=== PATIENT | male | born 1950 | race Caucasian/White ===

== ENCOUNTER 2017-05-04 09:50 | Observation (INO) | payer MEDICARE ==
[2017-05-04 12:40] LABS: PTT 48.2 SEC (22.9-36.1)
[2017-05-04 12:45] LABS: #Eosinphils 0.6 thou/uL (0.0-0.7); #Lymphocytes 1.6 thou/uL (1.20-3.40); #Monocytes 0.5 thou/uL (0.11-0.59); #Neutrophils 6.5 thou/uL (1.40-6.50); %Basophils 0.3 % (0.0-1.0); %Eosinophils 6.9 % (0.0-10.0); %Lymphocytes 17.4 % (21.0-51.0); %Monocytes 5.1 % (0.0-10.0); %Neutrophils 70.4 % (42.0-75.0); Hemoglobin 16.4 g/dL (14.0-18.0); Mean Corpuscular HGB CONC 32.7 g/dL (32.0-36.0); Mean Corpuscular Hemoglobin 31.6 pg (27.0-31.0); Mean Corpuscular Volume 96.6 fl (80.0-94.0); Mean Platelet Volume 8.9 fL (7.4-10.4); Platelet Count 245 thou/uL (130-400); RBC Distribution Width 11.8 % (11.5-14.5); Red Blood Cell (RBC) Count 5.21 mill/uL (4.70-6.10); White Blood Cell (WBC) Count 9.3 thou/uL (4.8-10.8)
[2017-05-04] MEDS ORDERED: Propofol 1,000 MG/100 ML VIAL IV ONE ×2 (12:47→13:47)
[2017-05-04] MEDS ORDERED: Midazolam HCl 2 mg/2 ml Vial ONE (12:47)
[2017-05-04] MEDS ORDERED: Glycopyrrolate 0.2 MG/ML 5 ML SYRINGE ONE (12:47)
[2017-05-04] MEDS ORDERED: Fentanyl 100 MCG/2 ML VIAL ONE (12:47)
[2017-05-04] MEDS ORDERED: PHENYLEPHRINE-NS 100 MCG/ML 10 ML SYRINGE ONE ×3 (12:47→14:45)
[2017-05-04 12:48] LABS: ALT (SGPT) 34 U/L (8-55); AST (SGOT) 19 U/L (5-34); Albumin 4.7 g/dL (3.4-4.8); Alkaline Phosphatase 70 U/L (40-150); Anion Gap 13 mmol/L (10-20); BUN (Urea Nitrogen) 19 mg/dL (8.4-25.7); Bilirubin, Total 0.9 mg/dL (0.2-1.2); Calc. Creatinine Clearance 98 mL/min (70-130); Calcium 9.8 mg/dL (7.8-10.44); Carbon Dioxide 26 mmol/L (23-31); Chloride 107 mmol/L (98-107); Estimated GFR-MDRD 82; Globulin 2.6 g/dL (2.4-3.5); Glucose 139 mg/dL (80-115); Potassium 4.2 mmol/L (3.5-5.1); Protein, Total 7.3 g/dL (5.8-8.1); Sodium 142 mmol/L (136-145)
[2017-05-04] MEDS ORDERED: Protamine Sulfate 50 MG/5 ML VIAL ONE ×2 (13:25→14:59)
[2017-05-04] MEDS ORDERED: Heparin 30,000 units/30 ml VIAL ONE (13:25)
[2017-05-04] MEDS ORDERED: PROPOFOL 200 MG/20 ML VIAL ONE (13:25)
[2017-05-04] MEDS ORDERED: Heparin 10,000 UNITS/1 ML VIAL ONE (13:27)
[2017-05-04] MEDS ORDERED: Heparin 25,000 units/D5W 500 ML ONE (14:00)
[2017-05-04] MEDS ORDERED: Lidocaine 2% Jelly 5 ML TUBE ONE (14:11)
--- NOTE | 2017-05-04 14:21 | EKG ---
Test Reason : PREOP Blood Pressure : / mmHG Vent. Rate : 085 BPM Atrial Rate : 085 BPM P-R Int : 146 ms QRS Dur : 086 ms QT Int : 372 ms P-R-T Axes : 047 -09 044 degrees QTc Int : 442 ms Normal sinus rhythm Normal ECG No previous ECGs available Confirmed by DR. Amadou ALLRED (3) on 05/04/2017 2:20:32 PM Referred By: [facility] Confirmed By:DR. Amadou ALLRED
[2017-05-04] MEDS ORDERED: Isoproterenol 0.2 MG/1 ML AMP ONE (14:48)
[2017-05-04] MEDS ORDERED: Morphine Sulfate 2 MG/ML SYRINGE SLOW IVP PRN (15:35)
[2017-05-04] MEDS ORDERED: Promethazine HCl 25 MG/ML VIAL SLOW IVP PRN ×2 (15:35→17:47)
[2017-05-04] MEDS ORDERED: Ondansetron HCl/PF 4 MG/2 ML Vial IVP PRN ×3 (15:35→17:47)
[2017-05-04] MEDS ORDERED: Bisacodyl 5 MG TAB PO PRN (16:51)
[2017-05-04] MEDS ORDERED: diphenhydrAMINE 25 MG CAP PO PRN (16:51)
[2017-05-04] MEDS ORDERED: traMADol HCl 50 MG TAB PO PRN (16:51)
[2017-05-04] MEDS ORDERED: Mag-Al 1200 mg/1200 mg/30 ML UDCUP PO PRN (16:51)
[2017-05-04] MEDS ORDERED: Acetaminophen 325 MG TAB PO PRN (16:51)
[2017-05-04] MEDS ORDERED: Bisacodyl 10 MG SUPP PR PRN (16:51)
[2017-05-04] MEDS ORDERED: Nitroglycerin 0.4 MG TAB (25 Tab Bottle) SL PRN (16:51)
[2017-05-04] MEDS ORDERED: Temazepam 15 MG CAP PO PRN (16:51)
[2017-05-04 16:52] VITALS: BMI 31.4
[2017-05-04] MEDS ORDERED: Fentanyl 100 MCG/2 ML VIAL SLOW IVP PRN (17:47)
[2017-05-04] MEDS ORDERED: HYDROcodone/Acetaminophen 5/325 mg Tablet PO PRN ×2 (17:47)
[2017-05-04] MEDS ORDERED: Tamsulosin HCl 0.4 MG CAP PO SCH (21:00)
[2017-05-04] MEDS ORDERED: Atorvastatin Calcium 40 MG TAB PO SCH (21:00)
--- NOTE | 2017-05-05 01:35 | CCL ---
DATE OF PROCEDURE: 05/04/2017 ELECTROPHYSIOLOGY STUDY AND RADIOFREQUENCY ABLATION REPORT REASON FOR PROCEDURE: Mr. Morton is a 66-year-old man with a history of recurrent sustained tachy palpitations with EKG documentation of SVT with adenosin termination. REFERRING PHYSICIAN: Gigi Zafar M.D. DESCRIPTION OF PROCEDURE: The patient received deep sedation by Anesthesia specialist. After adequate level of sedation achieved, both femoral venous areas were anesthetized using subcutaneous lidocaine. Under ultrasound guidance , the left femoral vein was accessed and two 6-[place] and 8-[place] sheaths were introduced through which a decapolar CS, an octapolar RV/-----, and a quadripolar catheter was advanced to the appropriate positions. Mapping, pacing , and recording was performed at each location. Basic electrophysiology study was performed with the following findings: Baseline cycle length is 690, CA 121 , QRS 80 milliseconds, QT 345 milliseconds, AH 74, HV 44 milliseconds. AV Wenckebach cycle length was 370 milliseconds. VA Wenckebach cycle length was 280 milliseconds. The accenting retrograde ventricular activation was seen with earliest atrial activation during V pacing was at the lateral CS. AV ERP was 600/240, no AV jump was observed with atrial and ventricular burst pacing. We are able to induce a narrow complex with a cycle length of 330 milliseconds. The atrial activation was again eccentric at the CS 12 position. Ventricular overdrive pacing demonstrated VA-VA return suggestive of no atrial tachycardia but AV reciprocating tachycardia. Following that, the decision was made to perform transseptal puncture with ice catheter monitoring. The right femoral veins were accessed x2 and 11-[place]izen [place] and 9-[place] sheaths were introduced for this purpose. The ice catheter was positioned in the right atrium and it was used to monitor the transseptal and for effusion after that. Following that, the transseptal procedure was performed using SLO sheath and [place] needle without complications. Following that, a Thermocool SFST catheter was advanced to the left atrium and left atrium 3D map was obtained. Also, activation map of the tachycardia was mapped. The earliest activation was mapped to the anterolateral area of the mitral valve annulus, and in this area a single burn promptly terminated the VA conduction. Following that, no over indelibility of tachycardia was observed. This persisted after isuprel challenge. Following that repeat EP study was performed revealing no inducible tachyarrhythmia. No AV jump was observed and VA block was seen up to 550 milliseconds. HV interval did not change, which was 44 milliseconds. CONCLUSION: 1. 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 2. Successful ablation of the pathway performed with no re-inducibility of tachycardia seen. PLAN: Routine postop recovery and to stop AV bebo blocking agents. POS: [facility] [address]
[2017-05-05] MEDS ORDERED: Levothyroxine 150 MCG TAB PO SCH (06:00)
[2017-05-05 08:34] VITALS: TEMP 98.4
[2017-05-05 08:49] VITALS: BP 116/69
[2017-05-05] MEDS ORDERED: Aspirin 325 mg Enteric Coated Tablet PO SCH (09:00)
--- NOTE | 2017-05-05 14:17 | DIS ---
DATE OF ADMISSION: 05/04/2017 DATE OF DISCHARGE: 05/05/2017 On discharge, Mr. Morton, after his overnight stay post-ablation for a left lateral accessory p athway, which was a cause of his AV re-entry tachycardia. HOSPITAL COURSE: The patient underwent elective EP study and ablation procedure as above. He tolera komal the procedure well, no complications noted. Due to left atrial access and anticoagulation during the case, he was kept overnight and the subsequent day, he remained stable. Postop telemetry strips reveal no arrhythmias. OBJECTIVE DATA: VITAL SIGNS: Blood pressure 114/61, heart rate 72, respirations 20, temperature 98 degrees Fahrenhei t. GENERAL: This is alert and oriented man in no apparent distress. NECK: Supple. Jugular veins not distended. CHEST: Coarse without crackles. CARDIOVASCULAR: Heart sounds are regular rate and rhythm. No murmur or gallop. ABDOMEN: Benign, bowel sounds positive. EXTREMITIES: Lower extremity without edema, clubbing, or cyanosis. DATABASE: EKG reviewed, sinus rhythm, rate of 75 beats per minute, normal EKG seen. PLAN: Mr. Morton is stable one day after his ablation procedure for discharge. We will discharge him on his home medications without change except for the metoprolol, will be reduc ed to 25 mg daily today and could be further tapered off as clinically appropriate.
--- NOTE | 2017-05-05 17:00 | EKG ---
Test Reason : Blood Pressure : / mmHG Vent. Rate : 086 BPM Atrial Rate : 086 BPM P-R Int : 158 ms QRS Dur : 084 ms QT Int : 370 ms P-R-T Axes : 073 031 066 degrees QTc Int : 442 ms Normal sinus rhythm Low voltage QRS Borderline ECG When compared with ECG of 04-MAY-2017 10:20, No significant change was found Confirmed by DR. Amadou ALLRED (3) on 05/05/2017 4:59:47 PM Referred By: [facility] Confirmed By:DR. Amadou ALLRDE
--- NOTE | 2017-05-05 17:03 | EKG ---
Test Reason : Blood Pressure : / mmHG Vent. Rate : 075 BPM Atrial Rate : 075 BPM P-R Int : 150 ms QRS Dur : 088 ms QT Int : 408 ms P-R-T Axes : 056 008 042 degrees QTc Int : 455 ms Normal sinus rhythm Normal ECG When compared with ECG of 04-MAY-2017 15:50, (Unconfirmed) No significant change was found Confirmed by DR. Amadou ALLRED (3) on 05/05/2017 5:03:07 PM Referred By: [facility] Confirmed By:DR. Amadou ALLRED
== END 2017-05-05 10:50 | disposition home or self-care (01) ==
LOC: CCL 09:50 → 2SW 15:37
PROVIDERS: ADMIT Internal Medicine Cardiovascular Disease; ATTEND Internal Medicine Cardiovascular Disease
DX: I47.1 Supraventricular tachycardia (principal); I25.10 Atherosclerotic heart disease of native coronary artery without angina pectoris; I48.91 Unspecified atrial fibrillation; I25.2 Old myocardial infarction; I34.0 Nonrheumatic mitral (valve) insufficiency; E11.9 Type 2 diabetes mellitus without complications; E78.5 Hyperlipidemia, unspecified; Z98.890 Other specified postprocedural states; Z79.82 Long term (current) use of aspirin; Z79.899 Other long term (current) drug therapy
CPT/HCPCS: 76942; 80053; 85025; 85347 ×2; 85610; 85730; 93005 ×3; 93462; 93613; 93623; 93653; C1730 ×3; C1759; C1769; G0378; 93010; J1644; J2250; J2704; J2720; J3010

== ENCOUNTER 2017-05-07 16:21 | Emergency (ER) | payer MEDICARE ==
[2017-05-07 16:54] LABS: #Basophils 0.1 thou/uL (0.0-0.2); #Eosinphils 0.3 thou/uL (0.0-0.7); #Lymphocytes 0.3 thou/uL (1.20-3.40); #Monocytes 0.4 thou/uL (0.11-0.59); #Neutrophils 7.7 thou/uL (1.40-6.50); %Basophils 1.5 % (0.0-1.0); %Eosinophils 3.4 % (0.0-10.0); %Lymphocytes 3.4 % (21.0-51.0); %Monocytes 4.6 % (0.0-10.0); %Neutrophils 87.1 % (42.0-75.0); Hemoglobin 15.6 g/dL (14.0-18.0); Mean Corpuscular HGB CONC 32.7 g/dL (32.0-36.0); Mean Corpuscular Hemoglobin 31.3 pg (27.0-31.0); Mean Corpuscular Volume 95.7 fl (80.0-94.0); Mean Platelet Volume 8.2 fL (7.4-10.4); Platelet Count 184 thou/uL (130-400); RBC Distribution Width 11.7 % (11.5-14.5); Red Blood Cell (RBC) Count 4.98 mill/uL (4.70-6.10); White Blood Cell (WBC) Count 8.9 thou/uL (4.8-10.8)
[2017-05-07 17:16] LABS: ALT (SGPT) 32 U/L (8-55); AST (SGOT) 22 U/L (5-34); Albumin 4.6 g/dL (3.4-4.8); Alkaline Phosphatase 88 U/L (40-150); Anion Gap 16 mmol/L (10-20); BUN (Urea Nitrogen) 13 mg/dL (8.4-25.7); Bilirubin, Total 1.6 mg/dL (0.2-1.2); CK (CPK) 55 U/L (30-200); Calc. Creatinine Clearance 0 mL/min (70-130); Calcium 9.5 mg/dL (7.8-10.44); Carbon Dioxide 24 mmol/L (23-31); Chloride 97 mmol/L (98-107); Estimated GFR-MDRD 77; Globulin 2.8 g/dL (2.4-3.5); Glucose 137 mg/dL (80-115); Potassium 4.1 mmol/L (3.5-5.1); Protein, Total 7.4 g/dL (5.8-8.1); Sodium 133 mmol/L (136-145)
[2017-05-07 17:21] LABS: CKMB 0.8 ng/mL (0-6.6); Troponin I 0.023 ng/mL (< 0.028)
--- NOTE | 2017-05-07 18:00 | RAD ---
AP VIEW CHEST: INDICATIONS: Heart palpitations. COMPARISON: Prior exam dated 12/31/2016. FINDINGS: No focal consolidation, pleural effusion, or pneumothorax is evident. The cardiomediastinal silhouet te is within normal limits. No acute osseous abnormality is evident. IMPRESSION: No acute cardiopulmonary abnormality. POS: [facility]
[2017-05-07] MEDS ORDERED: Acetaminophen 500 MG TAB ONE (18:58)
[2017-05-07] MEDS ORDERED: Ibuprofen 800 MG TAB ONE (20:24)
== END 2017-05-07 21:21 | disposition home or self-care (01) ==
LOC: ERS 16:21
DX: J11.1 Influenza due to unidentified influenza virus with other respiratory manifestations (principal); I25.2 Old myocardial infarction; I48.91 Unspecified atrial fibrillation; I47.1 Supraventricular tachycardia
CPT/HCPCS: 71010; 80053; 82553; 83605; 83880; 84484; 85025; 85379; 93005; 94760